=== PATIENT | female | born 1985 ===

== ENCOUNTER 2017-12-21 10:34 | Outpatient (CLI) | payer OTHER | END 2017-12-21 10:44 | disposition home or self-care (01) | LOC: SONOGRAMA 10:34 | DX: N84.0 Polyp of corpus uteri (principal); N94.5 Secondary dysmenorrhea ==

== ENCOUNTER 2018-11-15 08:08 | Day surgery (SDC) | payer OTHER ==
[~2018-11-15 08:08] MED LIST: ALER-CAP25 MG PO; CLARITIN10 M1 PO; DEPAKENE250 MG PO; FLOVENT HFA12 G1 IH; SINGULAIR5 MG; TRAZODONE HCL50 MG PO; WELLBUTRIN SR100 MG PO
[2018-11-15] MEDS ORDERED: Tylenol #3 PO (14:29)
[2018-11-15] MEDS ORDERED: DOXYCYCLINE HY100 M3 PO (14:29)
== END 2018-11-15 16:50 | disposition home or self-care (01) ==
LOC: CIR.AMB 08:08
DX: N84.0 Polyp of corpus uteri (principal); D25.0 Submucous leiomyoma of uterus